=== PATIENT | female | born 1985 | race Two or more races ===

== ENCOUNTER → 2023-09-04 06:31 | Day surgery (SDC) | payer BC, SELFPAY | LOC: GI 06:31 | PROVIDERS: ATTENDING PHYSICIAN Internal Medicine | DX: K92.1 Melena (principal); K64.8 Other hemorrhoids; K64.4 Residual hemorrhoidal skin tags; K31.7 Polyp of stomach and duodenum; D72.89 Other specified disorders of white blood cells; R10.13 Epigastric pain | CPT/HCPCS: 45378; 43239; 88305; 88341; 88342 ==